=== PATIENT | female | born 1985 | race Caucasian/White ===

== ENCOUNTER → 2018-04-12 | Outpatient (CLI) | payer BC ==
--- NOTE | 2018-04-12 09:32 | US ---
EXAMINATION TYPE: US abdomen complete DATE OF EXAM: 04/12/2018 COMPARISON: NONE CLINICAL HISTORY: Hematuria R31.9. low abd pain EXAM MEASUREMENTS: Liver Length: 13.9 cm Gallbladder Wall: 0.2 cm CBD: 0.3 cm Spleen: 10.5 cm Right Kidney: 12.4 x 4.1 x 5.9 cm Left Kidney: 12.8 x 4.6 x 6.2 cm Pancreas: visualized portions wnl Liver: wnl Gallbladder: No stones seen Evidence for sonographic Varela's sign: No CBD: wnl Spleen: wnl Right Kidney: No hydronephrosis or masses seen Left Kidney: No hydronephrosis or masses seen Upper IVC: wnl Abd Aorta: wnl The liver is homogenous. The intrahepatic portion of the IVC and proximal abdominal aorta are within normal limits. There is no evidence of cholelithiasis. Common bile duct is unremarkable. The visu alized portions of the pancreas are homogenous. The spleen is unremarkable. Kidneys are symmetric a nd free of hydronephrosis. No renal lesions are seen. IMPRESSION: 1. No significant abnormality appreciated.
--- NOTE | 2018-04-12 09:35 | US ---
EXAMINATION TYPE: US pelvic complete DATE OF EXAM: 04/12/2018 COMPARISON: NONE CLINICAL HISTORY: Hematuria R31.9. hysterectomy due to uterine cancer three years ago, patient compla ins of pelvic pain. TECHNIQUE: Transabdominal (TA). Date of LMP: 3 years ago EXAM MEASUREMENTS: Uterus: Surgically absent cm Endometrial Stripe: Surgically absent cm Right Ovary: 3.4 x 1.9 x 3.1 cm Left Ovary: 3.2 x 2.2 x 2.8 cm 1. Uterus: Surgically absent 2. Endometrium: Surgically absent 3. Right Ovary: wnl 4. Left Ovary: wnl 5. Bilateral Adnexa: wnl 6. Posterior cul-de-sac: no free fluid IMPRESSION: Postsurgical changes of the pelvis. No distinct abnormality appreciated.
== END | disposition home or self-care (01) ==
LOC: RADUSWWP 08:53
PROVIDERS: ATTEND Internal Medicine
DX: R31.9 Hematuria, unspecified (principal); Z98.890 Other specified postprocedural states
CPT/HCPCS: 76700; 76856

== ENCOUNTER → 2018-05-09 | Outpatient (CLI) | payer BC ==
--- NOTE | 2018-05-09 14:37 | CT ---
EXAMINATION TYPE: CT abdomen pelvis w con DATE OF EXAM: 05/09/2018 COMPARISON: Ultrasound 04/12/2018 HISTORY: Patient complains of generalized lower abdominal and pelvic pain. CT DLP: 860 mGycm Automated exposure control for dose reduction was used. CONTRAST: CT scan of the abdomen pelvis is performed with IV Contrast, patient injected with 100 mL of Isovue 3 00. FINDINGS- LUNG BASES-there are groundglass changes involving the lung bases posteriorly likely related to depen dent atelectasis. LIVER/GB-liver measures 18 cm correlate with no definite gallstones by CT.. PANCREAS- No gross abnormality is seen. SPLEEN- No gross abnormality is seen. Small accessory spleen noted ADRENALS- No gross abnormality is seen. KIDNEYS/BLADDER- no hydronephrosis nephrolithiasis or renal mass. BOWEL-bowel gas pattern nonspecific. Appendix has a normal appearance. Left colon is decompressed and limited in assessment. Diverticulosis of the colon. LYMPH NODES- No greater than 1cm abdominal or pelvic lymph nodes areappreciated. OSSEOUS STRUCTURES- No significant abnormality is seen. OTHER- there is soft tissue nodules adjacent to the iliac vasculature bilaterally much larger on the right measuring 2.4 cm. This could be related to a normal ovary but should be correlated with ultras ound to exclude a soft tissue mass or adenopathy. The uterus is not identified correlate for previous hysterectomy IMPRESSION- 1. Bilateral soft tissue nodules adjacent to the iliac vasculature within the anterior pelvis likely related to normal ovaries post hysterectomy. Correlation with ultrasound suggested to confirm and exc lude areas of adenopathy which is felt less likely. 2. Diverticulosis colon with no diagnostic evidence of diverticulitis. 3. Hepatomegaly.
== END ==
LOC: RADCTMAIN 11:25
PROVIDERS: ATTEND Internal Medicine
DX: K57.30 Diverticulosis of large intestine without perforation or abscess without bleeding (principal); R16.0 Hepatomegaly, not elsewhere classified; K92.89 Other specified diseases of the digestive system
CPT/HCPCS: 74177; Q9967

== ENCOUNTER → 2018-12-29 | Outpatient (CLI) | payer BC ==
--- NOTE | 2018-12-29 08:50 | MM ---
Reason for exam: clinical finding. Baseline mammogram. History: Patient has history of endometrial cancer at age 29. Family history of breast cancer in maternal grandmother at age 65. Indicated problem(s): lump or thickening in the left breast. Physical Findings: Nurse Summary: 1cm nodule in the left breast at 11 o'clock (nurse vandana). MG Diagnostic Mammo w CAD CAM Bilateral CC, MLO, and XCCL view(s) were taken. Spot compression MLO view(s) were taken of the left breast. The breast tissue is heterogeneously dense. This may lower the sensitivity of mammography. There is no discrete abnormality. These results were verbally communicated with the patient and result sheet given to the patient on 12/29/18. ASSESSMENT: Incomplete: need additional imaging evaluation, BI-RAD 0 RECOMMENDATION: Ultrasound of the left breast. (palpable)
--- NOTE | 2018-12-29 08:53 | USB ---
Reason for exam: additional evaluation requested from abnormal screening. History: Patient has history of endometrial cancer at age 29. Family history of breast cancer in maternal grandmother at age 65. US Breast Limited LT Left limited breast ultrasound including focal area of concern, retroareolar and axilla demonstrates no cystic or solid lesion seen. These results were verbally communicated with the patient and result sheet given to the patient on 12/29/18. ASSESSMENT: Negative, BI-RAD 1 RECOMMENDATION: Routine screening mammogram of both breasts at age 39. Manage patient on a clinical basis.
== END | disposition home or self-care (01) ==
LOC: RADMAMWWP 07:03
PROVIDERS: ATTEND Internal Medicine
DX: N63.20 Unspecified lump in the left breast, unspecified quadrant (principal); R92.8 Other abnormal and inconclusive findings on diagnostic imaging of breast
CPT/HCPCS: 77066

== ENCOUNTER → 2021-11-30 | Outpatient (CLI) | payer BC ==
--- NOTE | 2021-12-01 07:02 | US ---
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 GLAND SIZE: Right Lobe: 5.0 x 1.2 x 1.1 cm Overall Parenchyma: homogenous Left Lobe: 4.3 x 1.0 x 1.4 cm Overall Parenchyma: homogeneous Isthmus Thickness: 0.3 cm NODULES RIGHT: # of nodules measured on right: 0 LEFT: # of nodules measured on left: 0 ISTHMUS: # of nodules measured in the isthmus: 0 Bilateral neck scanned, no evidence of lymphadenopathy. IMPRESSION: Mild enlargement of the right lobe of thyroid. No solid or cystic nodules identified. 2017 ACR TI-RADS LEVEL: TR-RADS 1 - BENIGN: No FNA *Highest TI-RADS level nodule reported
== END | disposition home or self-care (01) ==
LOC: RADUSWWP 16:16
PROVIDERS: ATTEND Internal Medicine
DX: E01.0 Iodine-deficiency related diffuse (endemic) goiter (principal)
CPT/HCPCS: 76536

== ENCOUNTER → 2022-10-29 | Outpatient (CLI) | payer BC | END | disposition home or self-care (01) | LOC: LABWHC1 15:01 | PROVIDERS: ATTEND Internal Medicine | DX: E03.9 Hypothyroidism, unspecified (principal) | CPT/HCPCS: 36415; 84443 ==

== ENCOUNTER → 2022-12-04 | Outpatient (CLI) | payer BC | END | disposition home or self-care (01) | LOC: LABWHC1 11:37 | PROVIDERS: ATTEND Internal Medicine | DX: E03.9 Hypothyroidism, unspecified (principal); Z85.41 Personal history of malignant neoplasm of cervix uteri | CPT/HCPCS: 36415; 82672; 84443 ==

== ENCOUNTER → 2023-05-06 | Outpatient (CLI) | payer BC ==
--- NOTE | 2023-05-06 14:52 | US ---
EXAMINATION TYPE: US thyroid st tissue head/neck DATE OF EXAM: 05/06/2023 COMPARISON: CLINICAL INDICATION: Female, 37 years old with history of E04.9 NONTOXIC GOITER, UNSPECIFIED; Patient states not on thyroid meds at this time. GLAND SIZE: Right Lobe: 4.6 x 1.1 x 1.2 cm Overall Parenchyma: heterogenous Left Lobe: 4.5 x 1.5 x 1.2 cm Overall Parenchyma: heterogenous Isthmus Thickness: 0.4 cm NODULES RIGHT: # of nodules measured on right: 0 LEFT: # of nodules measured on left: 0 ISTHMUS: # of nodules measured in the isthmus: 0 Bilateral neck scanned, no evidence of lymphadenopathy. IMPRESSION: 1. No thyroid nodules. 2. Heterogenous thyroid gland correlate with serum markers for thyroiditis.
== END | disposition home or self-care (01) ==
LOC: RADUSWWP 13:32
PROVIDERS: ATTEND Internal Medicine Endocrinology, Diabetes & Metabolism
DX: E04.9 Nontoxic goiter, unspecified (principal)
CPT/HCPCS: 76536

== ENCOUNTER → 2023-05-12 | Outpatient (CLI) | payer BC | END | disposition home or self-care (01) | LOC: LABWHC1 11:15 | PROVIDERS: ATTEND Internal Medicine Endocrinology, Diabetes & Metabolism | DX: E03.8 Other specified hypothyroidism (principal); R53.83 Other fatigue | CPT/HCPCS: 36415; 82627; 82642; 84140; 84482; 86141 ==

== ENCOUNTER 2023-09-08 21:45 | Emergency (ER) | payer BC ==
[2023-09-08 22:42] LABS: Basophils # (A) 0.1 k/uL (0-0.2); Basophils % (A) 1 %; Eosinophils # (A) 0.3 k/uL (0-0.7); Eosinophils % (A) 3 %; HCT 43.3 % (34.0-46.0); HGB 14.3 gm/dL (11.4-16.0); Lymphocytes # (A) 2.8 k/uL (1.0-4.8); Lymphocytes % (A) 26 %; MCH 30.6 pg (25.0-35.0); Mean Platelet Volume 8.1; Monocytes # (A) 0.7 k/uL (0-1.0); Monocytes % (A) 6 %; Neutrophils # (A) 6.8 k/uL (1.3-7.7); Neutrophils % (A) 63 %; Platelet Count 285 k/uL (150-450); RBC 4.66 m/uL (3.80-5.40); RDW 11.9 % (11.5-15.5); WBC 10.9 k/uL (3.8-10.6)
[2023-09-08 22:54] LABS: INR 0.9 (<1.2); Partial Thromboplastin Time 22.8 sec (22.0-30.0); Prothrombin Time 10.3 sec (10.0-12.5)
[2023-09-08 22:59] LABS: ALT 19 U/L (4-34); AST 26 U/L (14-36); African American GFR (CKD) >90 (>60 ml/min/1.73 sqM); Albumin 4.5 g/dL (3.5-5.0); Alkaline Phosphatase 83 U/L (38-126); Anion Gap 7 mmol/L; Blood Urea Nitrogen 15 mg/dL (7-17); Calcium 9.5 mg/dL (8.4-10.2); Carbon Dioxide 24 mmol/L (22-30); Chloride 107 mmol/L (98-107); Glucose 91 mg/dL (74-99); Lipase 122 U/L (23-300); Non-African American GFR(CKD) >90 (>60 ml/min/1.73 sqM); Potassium 4.2 mmol/L (3.5-5.1); Sodium 138 mmol/L (137-145); Total Bilirubin 0.5 mg/dL (0.2-1.3); Total Protein 7.4 g/dL (6.3-8.2)
--- NOTE | 2023-09-09 00:07 | XR ---
EXAM: XR Chest, 2 Views CLINICAL HISTORY: ITS.REASON XR Reason: Chest Pain TECHNIQUE: Frontal and lateral views of the chest. COMPARISON: No relevant prior studies available. FINDINGS: Lungs: Unremarkable. No consolidation. Pleural space: Unremarkable. Mediastinum: Unremarkable. Normal mediastinal contour. Bones/joints: No fracture or dislocation. IMPRESSION: No acute findings.
--- NOTE | 2023-09-09 00:09 | ED ---
Chest Pain HPI - General Chief Complaint: Chest Pain Stated Complaint: Chest Pain, Shortness of Breath, Upper Back Pain Time Seen by Provider: 09/08/23 21:53 Source: patient Mode of arrival: ambulatory Limitations: no limitations - History of Present Illness Initial Comments: 38-year-old female presents to the emergency department reporting chest pain and shortness of breath. States her symptoms started around 7 PM. She was having a squeezing throbbing sensation in her left bicep which radiated into her chest. She denies previous history of cardiac disease. Does admit to some shortness of breath. No cough, fevers or chills. No nausea or vomiting. Denies concern for . No lower extremity swelling. No history of DVT or PE. She did not take anything for the pain before coming in. States her pain is mostly resolved upon hospital arrival. No other alleviating, precipitating modifying factors - Related Data Home Medications Medication Instructions Recorded Confirmed Phentermine HCl [Adipex-P] 37.5 mg PO QAM 01/08/14 01/08/14 Allergies Allergy/AdvReac Type Severity Reaction Status Date / Time Penicillins Allergy Unknown Verified 09/08/23 21:48 Review of Systems ROS Statement: Those systems with pertinent positive or pertinent negative responses have been documented in the HPI. ROS Other: All systems not noted in ROS Statement are negative. Past Medical History Past Medical History: No Reported History History of Any Multi-Drug Resistant Organisms: None Reported Past Surgical History: No Surgical Hx Reported Past Psychological History: No Psychological Hx Reported Smoking Status: Current every day smoker Past Alcohol Use History: None Reported Past Drug Use History: None Reported General Exam Limitations: no limitations General appearance: alert, in no apparent distress Head exam: Present: atraumatic, normocephalic, normal inspection Eye exam: Present: normal appearance, PERRL, EOMI. Absent: scleral icterus, conjunctival injection, periorbital swelling ENT exam: Present: normal exam, mucous membranes moist Neck exam: Present: normal inspection. Absent: tenderness, meningismus, lymphadenopathy Respiratory exam: Present: normal lung sounds bilaterally. Absent: respiratory distress, wheezes, rales, rhonchi, stridor Cardiovascular Exam: Present: regular rate, normal rhythm, normal heart sounds. Absent: systolic murmur, diastolic murmur, rubs, gallop, clicks GI/Abdominal exam: Present: soft, normal bowel sounds. Absent: distended, tenderness, guarding, rebound, rigid Extremities exam: Present: normal inspection, full ROM, normal capillary refill. Absent: tenderness, pedal edema, joint swelling, calf tenderness Back exam: Present: normal inspection Neurological exam: Present: alert, oriented X3, CN II-XII intact Psychiatric exam: Present: normal affect, normal mood Skin exam: Present: warm, dry, intact, normal color. Absent: rash Course Vital Signs 09/08/23 09/08/23 09/08/23 21:47 22:53 23:06 Temperature 97.8 F Pulse Rate 70 56 L Pulse Rate [ 68 [employer] ] Respiratory 18 15 Rate Blood Pressure 148/94 118/83 O2 Sat by Pulse 100 100 Oximetry 09/09/23 09/09/23 00:00 00:24 Temperature 98.7 F Pulse Rate 76 72 Pulse Rate [ [employer]ess ] Respiratory 18 16 Rate Blood Pressure 124/86 124/86 O2 Sat by Pulse 100 100 Oximetry Chest Pain MDM - MDM Was pt. sent in by a medical professional or institution (, PA, AUDIT INTERN, urgent care, hospital, or custodial...) When possible be specific @ -No Did you speak to anyone other than the patient for history (EMS, parent, family, police, friend...)? What history was obtained from this source @ -No Did you review nursing and triage notes (agree or disagree)? Why? @ -I reviewed and agree with nursing and triage notes Were old charts reviewed (outside hosp., previous admission, EMS record, old EKG, old radiological studies, urgent care reports/EKG's, custodial records)? Report findings @ -No old charts were reviewed Differential Diagnosis (chest pain, altered mental status, abdominal pain women, abdominal pain men, vaginal bleeding, weakness, fever, dyspnea, syncope, headache, dizziness, GI bleed, back pain, seizure, CVA, palpatations, mental health, musculoskeletal)? @ -Differential Chest Pain: Stable Angina, Unstable Angina, STEMI, NSTEMI Aortic Dissection, Pneumothorax, Musculoskeletal, Esophageal Spasm GERD, Cholecystitis, Pancreatitis, Zoster, this is not meant to be an all-inclusive list. EKG interpreted by me (3pts min.). @ -Yes and demonstrates sinus rhythm with a rate of 62. Parable 176. QRS 94. QTc of 400. No acute ST segment elevations or depressions X-rays interpreted by me (1pt min.). @ -Yes and demonstrates no acute process CT interpreted by me (1pt min.). @ -None done U/S interpreted by me (1pt. min.). @ -None done What testing was considered but not performed or refused? (CT, X-rays, U/S, labs)? Why? @ -None What meds were considered but not given or refused? Why? @ -Pain medications offered however patient refused Did you discuss the management of the patient with other professionals (professionals i.e. , PA, AUDIT INTERN, lab, RT, psych nurse, social service assistant, director of early childhood education, teacher, international first officer, director of casework services)? Give summary @ -No Was smoking cessation discussed for >3mins.? @ -No Was critical care preformed (if so, how long)? @ -No Were there social determinants of health that impacted care today? How? (Homelessness, low income, unemployed, alcoholism, drug addiction, transportation, low edu. Level, literacy, decrease access to med. care, fdc, rehab)? @ -No Was there de-escalation of care discussed even if they declined (Discuss DNR or withdrawal of care, Hospice)? DNR status @ -No What co-morbidities impacted this encounter? (DM, HTN, Smoking, COPD, CAD, Cancer, CVA, ARF, Chemo, Hep., AIDS, mental health diagnosis, sleep apnea, morbid obesity)? @ -None Was patient admitted / discharged? Hospital course, mention meds given and route, prescriptions, significant lab abnormalities, going to OR and other pertinent info. @ -Upon arrival patient was placed into room 3. Thorough history and physical exam was performed. Patient is offered pain medications however she refuses. IV is established. Laboratory studies are conducted. Chest x-ray was performed. Results are discussed with the patient. Patient has a low heart score. Patient will be discharged home and instructed to follow-up with her primary care doctor. Recommend Holter monitoring and an echo. Instructed to return for any new or worsening symptoms. Patient agreeable to plan she was discharged in stable condition Undiagnosed new problem with uncertain prognosis? @ -Yes Drug Therapy requiring intensive monitoring for toxicity (Heparin, Nitro, Insulin, Cardizem)? @ -No Were any procedures done? @ -No Diagnosis/symptom? @ -Acute chest pain Acute, or Chronic, or Acute on Chronic? @ -Acute Uncomplicated (without systemic symptoms) or Complicated (systemic symptoms)? @ -Complicated Side effects of treatment? @ -No Exacerbation, Progression, or Severe Exacerbation? @ -No Poses a threat to life or bodily function? How? (Chest pain, [place], [place], pneumonia, PE, COPD, DKA, ARF, appy, cholecystitis, CVA, Diverticulitis, Homicidal, Suicidal, threat to staff... and all critical care pts) @ -No Disposition Clinical Impression: Atypical chest pain Disposition: HOME SELF-CARE Condition: Stable Instructions (If sedation given, give patient instructions): Chest Pain (ED) Additional Instructions: Follow-up with your primary care doctor within 2-4 days. I recommend an echo of your heart. Return for any new or worsening symptoms Is patient prescribed a controlled substance at d/c from ED?: No Referrals: Shalini Scruggs MD [Primary Care Provider] - 1-2 days Time of Disposition: 00:09
[2023-09-09 00:36] VITALS: BP 124/86; PULSE 72; RESP 16; TEMP 98.7
== END 2023-09-09 00:25 | disposition home or self-care (01) ==
LOC: EC 21:45
DX: R07.89 Other chest pain (principal); F17.200 Nicotine dependence, unspecified, uncomplicated; Z88.0 Allergy status to penicillin
CPT/HCPCS: 36415; 71046; 80053; 83690; 83735; 84484; 85025; 85610; 85730; 93005; 99285

== ENCOUNTER → 2023-09-30 | Outpatient (CLI) | payer BC ==
--- NOTE | 2023-09-30 11:25 | CA ---
Transthoracic Echo Report Name: Taty Perez Age: 38 Gender: F : 1985 Exam Date: 09/30/2023 10:53 Exam Location: [facility] Ht (in): 69 Wt (lb): 180 Ordering Physician: Shalini Scruggs MD Attending/Referring Phys: Book Packer Elvira Dean RCS Procedure CPT: Indications: R07.89 other chest pain Cardiac Hx: Technical Quality: Good Contrast 1: Total Dose (mL): Contrast 2: Total Dose (mL): MEASUREMENTS (Male / Female) Normal Values 2D ECHO LV Diastolic Diameter PLAX 4.5 cm 4.2 - 5.9 / 3.9 - 5.3 cm LV Systolic Diameter PLAX 3.3 cm IVS Diastolic Thickness 0.7 cm 0.6 - 1.0 / 0.6 - 0.9 cm LVPW Diastolic Thickness 0.9 cm 0.6 - 1.0 / 0.6 - 0.9 cm LV Relative Wall Thickness 0.4 RV Internal Dim ED PLAX 3.6 cm LVOT Diameter 2.1 cm LV Diastolic Volume MOD BP 99.3 cm??? 67 - 155 / 56 - 104 cm??? LV Systolic Volume MOD BP 43.0 cm??? 22 - 58 / 19 - 49 cm??? LV Ejection Fraction MOD BP 56.7 % >= 55 % LV Cardiac Index MOD BP 1908.2 cm???/min???m??? LV Diastolic Volume MOD 4C 106.0 cm??? LV Systolic Volume MOD 4C 49.1 cm??? LV Ejection Fraction MOD 4C 53.7 % LV Cardiac Index MOD 4C 1927.1 cm???/min???m??? LV Diastolic Length 4C 8.5 cm LV Systolic Length 4C 6.9 cm LV Diastolic Volume MOD 2C 86.9 cm??? LV Systolic Volume MOD 2C 36.1 cm??? LV Ejection Fraction MOD 2C 58.4 % LV Cardiac Index MOD 2C 1719.3 cm???/min???m??? LV Diastolic Length 2C 7.9 cm LV Systolic Length 2C 6.6 cm LA Volume 43.0 cm??? 18 - 58 / 22 - 52 cm??? LA Volume Index 21.4 cm???/m??? 16 - 28 cm???/m??? Ascending Aorta Diameter 2.9 cm DOPPLER AV Peak Velocity 123.9 cm/s AV Peak Gradient 6.1 mmHg AV Mean Velocity 88.6 cm/s AV Mean Gradient 3.4 mmHg AV Velocity Time Integral 24.3 cm LVOT Peak Velocity 109.8 cm/s LVOT Peak Gradient 4.8 mmHg LVOT Velocity Time Integral 21.8 cm LVOT Stroke Volume 77.8 cm??? LVOT Stroke Volume Index 39.4 ml/m??? LVOT Cardiac Index 2635.2 cm???/min???m??? AV Area Cont Eq vti 3.2 cm??? AV Area Cont Eq pk 3.2 cm??? MV Area PHT 4.9 cm??? Mitral E Point Velocity 50.7 cm/s Mitral A Point Velocity 55.9 cm/s Mitral E to A Ratio 0.9 MV Deceleration Time 154.8 ms PV Peak Velocity 81.8 cm/s PV Peak Gradient 2.7 mmHg FINDINGS Left Ventricle Left ventricular ejection fraction is estimated at 50-55 %. Left ventricular wall thickness normal. Left ventricular cavity size normal. No obvious regional wall motion abnormalities. Right Ventricle Normal right ventricular size and function. Unable to assess right ventricular systolic pressure. Right Atrium Normal right atrial size. Left Atrium Normal left atrial size. Mitral Valve Structurally normal mitral valve. No mitral stenosis, regurgitation or prolapse. Aortic Valve Trileaflet aortic valve. No aortic valve stenosis or regurgitation. Tricuspid Valve Structurally normal tricuspid valve. No tricuspid stenosis. Trace tricuspid regurgitation. Pulmonic Valve Structurally normal pulmonic valve. No pulmonic stenosis. Trace pulmonic regurgitation. Pericardium No pericardial effusion. Aorta Normal size aortic root and proximal ascending aorta. CONCLUSIONS Normal LV function Previewed by: Dr. Farhan Doe MD (Electronically Signed) Final Date: 30 September 2023 11:24
--- NOTE | 2023-09-30 17:41 | CA ---
Exercise Stress Test Report Name: Taty Perez Exam Date: 09/30/2023 11:29 Exam Location: [facility] Ht (in): Wt (lb): BSA: Ordering Phys: Shalini Scruggs MD Referring Phys: BLAIR Technologist: Saravanan Casas Age: 38 Gender: F : 1985 Procedure CPT: Indications: R07.89 other chest pain ICD-10 Codes: Patient History: CP, KHADAR, PALP, NUMBENSS FACE/NECK, HTN, TOB, Medications: SUPPLMENTS Meds past 24 hrs: Pretest Chest Pain: STRESS TEST Familia Protocol Exercise Duration (min:sec): 11:[address] Depressions (mm): Angina Score: Sanon Score: Resting HR (bpm): 89 Peak HR (bpm): 167 Resting BP (mmHg): 111 / 60 Peak BP (mmHg): 168 / 68 MPHR: 181 Target HR: 154 % MPHR: 92 METS: 12.1 Total Dose: Peak Dose: Atropine: Double Product: 85989 BP Response: Stress Termination: Reached target heart rate Stress Symptoms: CHEST PAIN Stress Summary: ECG ANALYSIS Resting ECG: Normal sinus rhythm normal axis normal intervals with poor R-wave progression Stress ECG: Patient exercised on Familia protocol for 11 minutes achieving 85% of predicted maximal heart rate without chest pain or diagnostic ST segment depression CONCLUSIONS Excellent exercise tolerance negative stress test by EKG criteria Dr. Farhan Doe MD (Electronically Signed) Final Date: 30 September 2023 17:40
== END | disposition home or self-care (01) ==
LOC: RADNMMAIN 10:43
PROVIDERS: ATTEND Internal Medicine
DX: R07.89 Other chest pain (principal); I10 Essential (primary) hypertension
CPT/HCPCS: 93017; 93306